=== PATIENT | male | born 1950 | race Caucasian/White ===

== ENCOUNTER 2024-09-07 19:15 | Inpatient (IN) | payer OTHER ==
[~2024-09-07] VITALS: Ht 175.3 cm; Wt 105.0 kg
--- NOTE | 2024-09-07 19:39 | ED.PDOC ---
Garry. trauma (HPI) HPI Comments 78 year old male brought in by EMS presents to the ED with a chief complaint of head injury s/p fall onset today. Per EMS, patient fell, hit back of head on metal cart and currently has abrasion on back of head, placed on a c-collar. Patient states he was walking, lost his balance, fell and landed on his back. Patient is currently experiencing slight headache, unknown when his last tetanus vaccine was. EKG performed by EMS was concerning for STEMI. Pt denies CP, sob, n/v, dizziness, weakness. 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 PMHx HTN, HLD, heart murmur, depression. Denies neck/back pain, other injury, focal weakness or vision change s. No other symptoms or modifying factors present at this time. Chief Complaint: Fall Injury Time Seen by MD: 19:18 Allergies: Coded Allergies: Sulfamethoxazole w/Trimethoprim (Verified Allergy, Unknown, 09/07/24) Information Source: Patient, Emergency Med Personnel Mode of Arrival: EMS Severity: Moderate Timing: Hours Duration: Since onset Prehospital treatment: 12 Lead EKG, C-Collar, Oxygen Location: Head Location of laceration: Head Mechanism: Fall Associated signs and symtoms: Headache Past Medical History PAST MEDICAL HISTORY: Depression, High Lipids, HTN Past Medical History (Other): heart murmur Family History Family History: Unknown Social History Smoker: Non-Smoker Alcohol: Denies ETOH Use Drugs: Denies Drug Use Lives In: Home Constitutional: denies: chills, diaphoresis, fatigue, fever, malaise, sweats, weakness, others EENTM: denies: blurred vision, double vision, ear bleeding, ear discharge, ear drainage, ear pain, ear ringing, eye pain, eye redness, hearing loss, mouth pain, mouth swelling, nasal discharge, nose bleeding, nose congestion, nose pain, photophobia, tearing, throat pain, throat swelling, voice changes, others Respiratory: denies: cough, hemoptysis, orthopnea, SOB at rest, shortness of breath, SOB with excertion, stridor, wheezing, others Cardiovascular: denies: chest pain, dizzy spells, diaphoresis, Dyspnea on exertion, edema, irregular heart beat, left arm pain, lightheadedness, palpitations, PND, syncope, others Gastrointestinal: denies: abdomen distended, abdominal pain, blood streaked bowels, constipated, diarrhea, dysphagia, difficulty swallowing, hematemesis, melena, nausea, poor appetite, poor fluid intake, rectal bleeding, rectal pain, vomiting, others Genitourinary: denies: burning, dysuria, flank pain, frequency, hematuria, incontinence, penile discharge, penile sore, pain, testicle pain, testicle swelling, urgency, others Neurological: reports: headache; denies: dizziness, fainting, left sided numbness, left sided weakness, numbness, paresthesia, pre-existing deficit, right sided numbness, right sided weakness, seizure, speech problems, tingling, tremors, weakness, others Musculoskeletal: denies: back pain, gout, joint pain, joint swelling, muscle pain, muscle stiffness, neck pain, others Integumetry: reports: laceration (head ); denies: bruises, change in color, change in hair/nails, dryness, lesions, lumps, rash, wounds, others Allergic/Immunocompromised: denies: Difficulty Healing, Frequent Infections, Hives, Itching, others Hematologic/Lymphatic: denies: anemia, blood clots, easy bleeding, easy bruising, swollen glands, others Endocrine: denies: excessive hunger, excessive sweating, excessive thirst, excessive urination, flushing, intolerance to cold, intolerance to heat, unexplained weight gain, unexplained weight loss, others Psychiatric: denies: anxiety, bipolar disorder, depression, hopeless, panic disorder, schizophrenia, sleepless, suicidal, others All Other Systems: Reviewed and Negative Physical Exam General Appearance: No Apparent Distress HEENT: Other (Pupils and face symmetric. Occipital abrasion/soft tissue tenderness and swelling) Neck: Full Range of Motion, Normal Inspection, Supple, Other (Upper cervical paraspinal soft tissue tenderness) Respiratory: Lungs Clear, No Accessory Muscle Use, No Respiratory Distress, Normal Breath Sounds Cardiovascular: No Edema, No JVD, Regular Rate/Rhythm Breast Exam: Deferred Gastrointestinal: Non Tender, Soft Genitalia: Deferred Pelvic: Deferred Rectal: Deferred Extremities: Normal inspection, Normal range of motion, Non-tender, No pedal edema Neurologic: Alert (Oriented x4), Normal Affect, Normal Mood, Other (Moves all extremities. No gross focal deficit.) Cerebellar Function: NOT DONE Reflexes: NOT DONE Skin: Dry, Normal Color, Warm, Other (Occipital scalp abrasion/soft tissue swelling/tenderness) Lymphatic: NOT DONE Was a procedure done? Was a procedure done?: No EKG EKG #1: Comments Sinus tach, rate 102, normal intervals, left axis deviation, ST elevation in inferior leads consistent with acute AR other nonspecific T changes EKG #2: Comments Sinus tach, rate 100, normal intervals, normal axis, inferior Q-wave, nonspecific T change. Significantly changed from previous EKG, currently not showing inferior ST elevation. Differential Diagnosis Multiple Trauma: Closed Head Injury, Cardiac Injury, Cerebral Contusion, Spine Injury, Contusion, Hematoma Neck Injury: Cervical Muscle Spasm, Cervical Sprain, Cervical Strain, Cervical Fracture X-Ray, Labs, Meds, VS Vital Signs Date Time Temp Pulse Resp B/P (MAP) Pulse Ox O2 Delivery O2 Flow Rate FiO2 09/07/24 22:00 99.2 99 19 134/66 (88) 97 99.2 09/07/24 20:00 91 21 121/70 (87) 95 09/07/24 19:48 99.4 100 14 144/72 (96) 95 99.4 09/07/24 19:45 Room Air* 0 21 09/07/24 19:34 100 09/07/24 19:16 99.1 110 16 153/89 (110) 98 Lab Test 09/07/24 22:55 09/07/24 21:19 09/07/24 21:11 09/07/24 20:03 Range/Units Troponin I High Sensitivity 2105 *H 975 *H 518 *H </=54 ng/L Urine Color Light-yellow Yellow Urine Clarity Clear Clear Urine pH 5.0 5.0-9.0 Urine Specific [place] 1.021 1.001-1.035 Urine Protein Trace H Negative Urine Ketones Negative Negative Urine Blood Trace H Negative /uL Urine Nitrite Negative Negative Urine Bilirubin Negative Negative Urine Urobilinogen Normal Negative mg/dL Urine Leukocyte Esterase 3+ Negative /uL Urine RBC 1 0 - 3 /hpf Urine Microscopic WBC 34 H 0-3 /HPF Urine Squamous Epithelial Cells Few <5 /hpf Urine Bacteria None seen None Seen /hpf Urine Hyaline Casts Few 0 - 2 /lpf Urine Mucus Few None Seen Urine Glucose Normal Normal mg/dL White Blood Count 10.2 4.4-10.8 10^3/uL Red Blood Count 4.56 4.5-5.90 10^6/uL Hemoglobin 16.2 13.5-17.5 g/dL Hematocrit 47.6 41.0-53.0 % Mean Corpuscular Volume 104.3 H 80.0-100.0 fL Mean Corpuscular Hemoglobin 35.6 H 28.0-32.0 pg Mean Corpuscular Hemoglobin Concent 34.2 32.0-36.0 g/dL Red Cell Distribution Width 12.7 11.8-14.3 % Platelet Count 197 140-450 10^3/uL Mean Platelet Volume 7.8 6.9-10.8 fL Neutrophils (%) (Auto) 88.1 H 37.0-80.0 % Lymphocytes (%) (Auto) 4.9 L 10.0-50.0 % Monocytes (%) (Auto) 5.8 0.0-12.0 % Eosinophils (%) (Auto) 0.9 0.0-7.0 % Basophils (%) (Auto) 0.3 0.0-2.0 % Neutrophils # (Auto) 8.9 H 1.6-8.6 10 ^3/uL Lymphocytes # (Auto) 0.5 0.4-5.4 10 ^3/uL Monocytes # (Auto) 0.6 0-1.3 10 ^3/uL Eosinophils # (Auto) 0.1 0-0.8 10 ^3/uL Basophils # (Auto) 0 0-0.2 10 ^3/uL Nucleated Red Blood Cells 0.0 % Sodium Level 140 136-145 mmol/L Potassium Level 4.3 3.5-5.1 mmol/L Chloride Level 107 98-107 mmol/L Carbon Dioxide Level 27 20-31 mmol/L Anion Gap 6 5-15 Blood Urea Nitrogen 23 9-23 mg/dL Creatinine 1.05 0.700-1.30 mg/dL Glomerular Filtration Rate Calc 72 >90 mL/min BUN/Creatinine Ratio 21.9 H 10.0-20.0 Serum Glucose 79 74-106 mg/dL Calcium Level 9.8 8.7-10.4 mg/dL B-Type Natriuretic Peptide 34.66 0-100 pg/mL Current Medications Medications (Trade) Dose Ordered Sig/Jomar Route Start Time Stop Time Status Last Admin Diphtheria/ Tetanus/Acell Pertussis (Boostrix T-Dap) 0.5 ml ONCE ONCE IM 09/07/24 19:45 09/07/24 19:46 DC 09/07/24 20:10 Acetaminophen/ Hydrocodone Bitart ([place] 5/325MG Tab) 1 tab ONCE ONCE PO 09/07/24 19:45 09/07/24 19:46 DC 09/07/24 21:40 Aspirin 325 mg ONCE ONCE PO 09/07/24 21:30 09/07/24 21:31 DC 09/07/24 21:39 ORDERING PHYSICIAN: SHERLYN PANCHAL MD PROCEDURE(s): CS2 - CERVICAL WITHOUT CONTRAST REASON: trauma ORDER NUMBER(s): [id number], ACCESSION NUMBER(s): [id number] EXAM: CT CERVICAL WITHOUT CONTRAST HISTORY: trauma COMPARISON: None CTDIvol [CTDIvol] mGy, DLP [DLP] mGy*cm. TECHNIQUE: Multiple axial CT images of the spine were obtained using bone algorithm. Axial and coronal reformatting was done. Bone and soft tissue wind ows were reviewed. FINDINGS: Straightening of the normal cervical lordosis. No listhesis. No evidence of cervical spine fracture or dislocation. Visualized paraspinal soft tissues are grossly unremarkable. Multilevel cervical spondylosis with at most mild spinal canal narrowing. IMPRESSION: No evidence of cervical spine fracture or dislocation. ATED BY: SANTY MARIN MD DICTATED DATE/TIME: 09/07/242103 SIGNED BY: SANTY MARIN MD SIGNED DATE/TIME: 09/07/242103 CC: ORDERING PHYSICIAN: SHERLYN PANCHAL MD PROCEDURE(s): CXRP - CHEST PORTABLE REASON: abn ekg ORDER NUMBER(s): [id number], ACCESSION NUMBER(s): [id number] CHEST RADIOGRAPH Indication: abn ekg Technique: Single frontal view of the chest was obtained COMPARISON: None FINDINGS: Lines and Tubes: None Lungs: Clear Pleura: No effusion. No pneumothorax. Cardiomediastinal contours: Within normal limits Bones: Unremarkable IMPRESSION: No acute disease. ATED BY: SANTY MARIN MD DICTATED DATE/TIME: 09/07/242105 SIGNED BY: SANTY MARIN MD SIGNED DATE/TIME: 09/07/242105 CC: ORDERING PHYSICIAN: SHERLYN PANCHAL MD PROCEDURE(s): HWOCT - HEAD WITHOUT CONTRAST REASON: trauma ORDER NUMBER(s): [id number], ACCESSION NUMBER(s): [id number] CT HEAD WITHOUT CONTRAST INDICATION: trauma COMPARISON: None TECHNIQUE: CT of the head without intravenous contrast. RADIATION DOSE: CTDIvol: mGy, DLP: mGy*cm FINDINGS: There is no evidence of intracranial hemorrhage, large infarct, extra-axial collection, mass effect, midline shift, herniation or hydrocephalus. The ventricles, sulci and cisterns are normal. Mild chronic white matter microvascular ischemic changes. Visualized paranasal sinuses and mastoid air cells are clear. Soft tissues and osseous structures are unremarkable. IMPRESSION: No acute intracranial abnormality identified. Mild chronic microvascular ischemic changes. ATED BY: SANTY MARIN MD DICTATED DATE/TIME: 09/07/242100 SIGNED BY: SANTY MARIN MD SIGNED DATE/TIME: 09/07/242100 CC: ORDERING PHYSICIAN: SHERLYN PANCHAL MD PROCEDURE(s): ABPL - CT AB PEL WO CON-NO ORAL OR IV REASON: FALL // BLOOD IN URINE ORDER NUMBER(s): [id number], ACCESSION NUMBER(s): [id number] Exam: CT CT AB PEL WO CON-NO ORAL OR IV History: FALL // BLOOD IN URINE Comparison Study: None available at time of dictation. TECHNIQUE: Multidetector CT of the abdomen was performed from lung bases to pubic symphysis. Imaging was performed without IV contrast. Axial, coronal and sagittal multiplanar reformats were obtained from the axial data set by the technologist. Radiation Dose Information: CT Dose: CTDI volume is 17.45 mGy. Dose-length product is 2573.08 mGy*cm FINDINGS: Evaluation of solid organs is limited due to lack of intravenous contrast use. Findings: Lung Bases: No acute or significant lung base finding. Normal heart size. No pleural or pericardial effusion. Liver: Hepatic steatosis Gallbladder and Biliary Tree: Unremarkable Spleen: Unremarkable Pancreas: The pancreas is grossly normal in appearance. Adrenal Glands: Unremarkable Kidneys: No nephrolithiasis or hydronephrosis. Prostate measures 4.2 x 3.9 cm. Bladder: Grossly unremarkable for degree of distention. Bowel: The stomach is grossly normal in appearance. Small bowel and colon are normal in caliber and distribution. The appendix is not visualized; however, no secondary findings of acute appendicitis identified. Ascites: Absent Lymphadenopathy: No mesenteric, retroperitoneal or periportal lymphadenopathy. Abdominal Wall and Mesentery: 4-5 cm fat filled right inguinal hernia. Vasculature: The visualized abdominal aorta is normal in size and caliber. Evaluation of abdominal and pelvic vessels is limited due to lack of intravenous contrast. Pelvic Organs: Unremarkable Musculoskeletal: No aggressive focal bony lesions, acute fractures or dislocation. Soft tissues: Unremarkable IMPRESSION: 1. Hepatic steatosis. 2. No nephrolithiasis or hydronephrosis. 3. Prostate measures 4.2 by 3.9 cm HS:Y Radiation optimization: All CT scans at this facility use at least one of these dose optimization techniques: automated exposure control mA and/or kV adjustment per patient size (includes targeted exams where dose is matched to clinical indication) or iterative reconstruction. ATED BY: DONALD RUTLEDGE Jr., DO DICTATED DATE/TIME: 09/07/242118 SIGNED BY: DONALD RUTLEDGE Jr., SIGNED DATE/TIME: 09/07/242118 CC: X-Ray, Labs, Meds, VS Comment 74-year-old male with a history of hypertension, dyslipidemia and heart murmur brought in by EMS after a mechanical fall with head injury. ST elevation in inferior leads was noted on EKG performed by EMS, so the patient was evaluated by Dr. Rivera in the ED. Patient denied chest pain, shortness breath or weakness. Vitals remarkable for heart rate 110, BP 153/89 Exam remarkable for occipital scalp abrasion/soft tissue swelling/tenderness and upper cervical paraspinal soft tissue tenderness Rhythm strip independently interpreted by me: Sinus tach, rate 102, no ectopy. Head CT and CT C-spine unremarkable for any acute injury Chest x-ray unremarkable CT abdomen and pelvis was performed because patient later complained of hematuria. CT abdomen and pelvis: IMPRESSION: 1. Hepatic steatosis. 2. No nephrolithiasis or hydronephrosis. 3. Prostate measures 4.2 by 3.9 cm CBC and basic metabolic panel unremarkable. Serial troponins 518, 975, 2105 BNP normal UA abnormal consistent with UTI Patient treated with the following in the ED: Seen and evaluated by Dr. Rivera on arrival. Dr. 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 [place] 5/325 mg p.o., aspirin 325 mg p.o., Rocephin 1 g IV, started on heparin per protocol. Time of 1ST Reevaluation: 19:48 Reevaluation 1ST: Unchanged Patient Education/Counseling: Diagnosis, Treatment, Prognosis Family Education/Counseling: No Family Present Additional Information The following tests were ordered, and results were reviewed by me: TROP-x3, CBC, BNP, XY CHEST, UA, BMP, EKG, CT HEAD WO CONTRAST, CT CERVICAL WO CONTRAST I reviewed and agreed with the following test results read by other providers: CT HEAD WO CONTRAST, CT CERVICAL WO CONTRAST, XY CHEST Additional Information was gathered from interviewing the following independent historians: EMS I discussed treatment and results with medical personnel and: patient Departure 1 Departure Time of Disposition: 23:56 Impression: Primary Impression: Head injury Qualified Codes: S09.90XA - Unspecified injury of head, initial encounter Additional Impressions: Acute AR Qualified Codes: I21.9 - Acute myocardial infarction, unspecified UTI (urinary tract infection) Qualified Codes: N39.0 - Urinary tract infection, site not specified; R31.9 - Hematuria, unspecified Disposition: ADMITTED INPATIENT Admit to: Tele Condition: Guarded Critical Care Note Critical Care Time?: Yes (45 min-critical care time only) Critical care comment: Critical care time including multiple bedside re-evaluations, review of lab and imaging studies, and discussion of the case with the admitting and consulting providers. Patient is high risk for hemodynamic decompensation. Stability Stability form required: No Heart Score Heart Score: Heart Score Response (Comments) Value History Slightly Suspicious [address]-Deviation 2 Age >65 2 Risk Factors 1 or 2 risk factors 1 Troponin >3 x's Normal limit 2 Total 7 I personally scribed for SHERLYN PANCHAL MD ([email or web address]) on 09/07/24 at 19:39. Electronically submitted by Zaina Fagan ([email or web address]). I personally scribed for SHERLYN PANCHAL MD (ENRIQUE) on 09/07/24 at 20:20. Electronically submitted by Zaina Fagan ([email or web address]). I personally scribed for SHERLYN PANCHAL MD (ENRIQUE) on 09/07/24 at 20:24. Electronically submitted by Zaina Fagan ([email or web address]). I personally scribed for SHERLYN PANCHAL MD (ENRIQUE) on 09/07/24 at 20:28. Electronically submitted by Zaina Fagan ([email or web address]). I personally scribed for SHERLYN PANCHAL MD (ENRIQUE) on 09/07/24 at 21:48. Electronically submitted by Zaina Fagan ([email or web address]). SHERLYN PANCHAL MD Sep 07, 2024 19:39
[2024-09-07] MEDS: TETANUS-DIPTH-ACEL PERTUSSIS 0.5ML SYR Tdap IM ONE (20:10)
[2024-09-07 20:18] LABS: Basophils # (auto) 0 10 ^3/uL (0-0.2); Basophils % (auto) 0.3 % (0.0-2.0); Eosinophils # (auto) 0.1 10 ^3/uL (0-0.8); Lymphocytes # (auto) 0.5 10 ^3/uL (0.4-5.4); Monocytes # (auto) 0.6 10 ^3/uL (0-1.3); Neutrophils # (auto) 8.9 10 ^3/uL (1.6-8.6)
[2024-09-07 20:19] LABS: Eosinophils % (auto) 0.9 % (0.0-7.0); Hematocrit 47.6 % (41.0-53.0); Hemoglobin 16.2 g/dL (13.5-17.5); Lymphocytes % (auto) 4.9 % (10.0-50.0); Mean Corpuscular Hemoglobin 35.6 pg (28.0-32.0); Mean Corpuscular Hgb Conc. 34.2 g/dL (32.0-36.0); Mean Corpuscular Volume 104.3 fL (80.0-100.0); Monocytes % (auto) 5.8 % (0.0-12.0); Neutrophils % (auto) 88.1 % (37.0-80.0); Platelet Count (auto) 197 10^3/uL (140-450); Red Blood Cells 4.56 10^6/uL (4.5-5.90); Red Cell Distribution Width 12.7 % (11.8-14.3); White Blood Cell 10.2 10^3/uL (4.4-10.8)
[2024-09-07 20:32] LABS: Chloride 107 mmol/L (98-107); Potassium 4.3 mmol/L (3.5-5.1); Sodium 140 mmol/L (136-145)
[2024-09-07 20:33] LABS: Anion Gap 6 (5-15); Calcium 9.8 mg/dL (8.7-10.4); Carbon Dioxide 27 mmol/L (20-31)
[2024-09-07 20:38] LABS: BUN/Creatinine Ratio 21.9 (10.0-20.0); Blood Urea Nitrogen 23 mg/dL (9-23); Glucose 79 mg/dL (74-106)
--- NOTE | 2024-09-07 21:03 | DVH ---
CT HEAD WITHOUT CONTRAST INDICATION: trauma COMPARISON: None TECHNIQUE: CT of the head without intravenous contrast. RADIATION DOSE: CTDIvol: mGy, DLP: mGy*cm FINDINGS: There is no evidence of intracranial hemorrhage, large infarct, extra-axial collection, mass effect, midline shift, herniation or hydrocephalus. The ventricles, sulci and cisterns are normal. Mild ch ronic white matter microvascular ischemic changes. Visualized paranasal sinuses and mastoid air cell s are clear. Soft tissues and osseous structures are unremarkable. IMPRESSION: No acute intracranial abnormality identified. Mild chronic microvascular ischemic changes.
--- NOTE | 2024-09-07 21:06 | DVH ---
EXAM: CT CERVICAL WITHOUT CONTRAST HISTORY: trauma COMPARISON: None CTDIvol [CTDIvol] mGy, DLP [DLP] mGy*cm. TECHNIQUE: Multiple axial CT images of the spine were obtained using bone algorithm. Axial and coron al reformatting was done. Bone and soft tissue windows were reviewed. FINDINGS: Straightening of the normal cervical lordosis. No listhesis. No evidence of cervical spine fracture o r dislocation. Visualized paraspinal soft tissues are grossly unremarkable. Multilevel cervical spondylosis with at most mild spinal canal narrowing. IMPRESSION: No evidence of cervical spine fracture or dislocation.
--- NOTE | 2024-09-07 21:09 | DVH ---
CHEST RADIOGRAPH Indication: abn ekg Technique: Single frontal view of the chest was obtained COMPARISON: None FINDINGS: Lines and Tubes: None Lungs: Clear Pleura: No effusion. No pneumothorax. Cardiomediastinal contours: Within normal limits Bones: Unremarkable IMPRESSION: No acute disease.
[2024-09-07 21:19] LABS: Urine Bacteria None Seen /hpf (None Seen)
--- NOTE | 2024-09-07 21:21 | DVH ---
Exam: CT CT AB PEL WO CON-NO ORAL OR IV History: FALL // BLOOD IN URINE Comparison Study: None available at time of dictation. TECHNIQUE: Multidetector CT of the abdomen was performed from lung bases to pubic symphysis. Imaging was performed without IV contrast. Axial, coronal and sagittal multiplanar reformats were obtained fr om the axial data set by the technologist. Radiation Dose Information: CT Dose: CTDI volume is 17.45 mGy. Dose-length product is 2573.08 mGy*cm FINDINGS: Evaluation of solid organs is limited due to lack of intravenous contrast use. Findings: Lung Bases: No acute or significant lung base finding. Normal heart size. No pleural or pericardial effusion. Liver: Hepatic steatosis Gallbladder and Biliary Tree: Unremarkable Spleen: Unremarkable Pancreas: The pancreas is grossly normal in appearance. Adrenal Glands: Unremarkable Kidneys: No nephrolithiasis or hydronephrosis. Prostate measures 4.2 x 3.9 cm. Bladder: Grossly unremarkable for degree of distention. Bowel: The stomach is grossly normal in appearance. Small bowel and colon are normal in caliber and d istribution. The appendix is not visualized; however, no secondary findings of acute appendicitis id entified. Ascites: Absent Lymphadenopathy: No mesenteric, retroperitoneal or periportal lymphadenopathy. Abdominal Wall and Mesentery: 4-5 cm fat filled right inguinal hernia. Vasculature: The visualized abdominal aorta is normal in size and caliber. Evaluation of abdominal a nd pelvic vessels is limited due to lack of intravenous contrast. Pelvic Organs: Unremarkable Musculoskeletal: No aggressive focal bony lesions, acute fractures or dislocation. Soft tissues: Unremarkable IMPRESSION: 1. Hepatic steatosis. 2. No nephrolithiasis or hydronephrosis. 3. Prostate measures 4.2 by 3.9 cm HS:Y Radiation optimization: All CT scans at this facility use at least one of these dose optimization samantha hniques: automated exposure control mA and/or kV adjustment per patient size (includes targeted exam s where dose is matched to clinical indication) or iterative reconstruction.
[2024-09-07] MEDS: ASPirin 325 MG TAB PO ONE (21:39)
[2024-09-07] MEDS: HYDROcodone-ACET 5/325MG TAB PO ONE (21:40)
[2024-09-07 22:05] LABS: Urine Blood TRACE /uL (Negative); Urine Clarity Clear (Clear); Urine Color Light-Yellow (Yellow); Urine Hyaline Cast FEW /lpf (0 - 2); Urine Mucus FEW (None Seen); Urine Protein, UAD TRACE (Negative); Urine Specific Gravity 1.021 (1.001-1.035); Urine Squamous Epithelial Cell FEW /hpf (<5); Urine Urobilinogen Normal (Negative); Urine WBC 34 /HPF (0-3)
[2024-09-07] MEDS ORDERED: HEPARIN DRIP/D5W 100UNITS/ML 250 ML IV SCH (23:45)
[2024-09-08] VITALS (11 sets, daily range): BP systolic 111–157; BP diastolic 67–92; PULSE 72–94; RESP 13–21; TEMP 97.6–99.3; O2SAT 96–100
[2024-09-08] MEDS: cefTRIAXone 1GM/50ML D5W 50 ML IV ONE (00:11)
[2024-09-08 00:17] LABS: INR 1.04 (0.9-1.15); Partial Thromboplastin Time 25.9 SEC (24.5-34.5)
[2024-09-08] MEDS ORDERED: ACETAMINOPHEN 325 MG TAB PO PRN (00:45)
[2024-09-08] MEDS: HEPARIN SODIUM (PORCINE) 5000 UNITS/ML 1ML VIAL IV ONE ×3 (00:57→10:13)
[2024-09-08] MEDS: HEPARIN DRIP/D5W 100UNITS/ML 250 ML IV SCH ×2 (00:59→10:13)
[2024-09-08] MEDS: SODIUM CHLORIDE 0.9% 1,000 ML IV ONE (01:24)
[2024-09-08] MEDS: SODIUM CHLORIDE 0.9% 500 ML IV ONE (01:24)
--- NOTE | 2024-09-08 01:27 | DVHHPRES ---
History of Present Illness Resident Creating Document: HUEY DELUCA RESIDENT History of Present Illness 74-year-old male with past medical history of hypertension, dyslipidemia, depression, holosystolic heart murmur, depression who presented to the ED with chief complaint of head injury after mechanical fall. Patient reported that he was working on his yard for a long time collecting leaves, the patient states that after some time he started feeling minimally dizzy, fatigued and with low energy. Patient stated that he try to hold on the fence for a while, afterwards he started walking and he felt his knees and lower extremities did not respond and fall backwards hitting his head at the occipital region. The patient states that he never lost consciousness and that he tried to stand up and fall down once again hitting again his head during his fall. The patient states he never felt that he was loosing consciousness and denies blurry vision, hot sensation or any other symptoms. On admission initial labs showed a WBC of 10.2, hemoglobin of 16.2 troponins were significantly elevated at 975 and peaked at 2105. EKG was reviewed which showed sinus tachycardia with nonspecific T-wave inversion in leads III, AVF and V6. Initial head CT without contrast showed no evidence of intracranial bleeding or acute stroke. Chest x-ray was grossly unremarkable and cervical spine CT showed no fractures or dislocations. A CT scan of the abdomen and pelvis with hepatic steatosis and enlarged prostate. The patient denies chest pain, shortness of breath, fever/chills or any other symptoms at this time. Patient will be admitted to telemetry for further assessment and management. Home Medications: Metoprolol succinate, lisinopril, atorvastatin Cardiovascular: HTN, hyperipidemia Psych: Depression Past Surgical History: None Family History: None Smoke: No ALCOHOL: none Drugs: None Lives: with Family Domestic Violence: Neg Review of Systems Constitutional: No: Fever, Chills, Sweats, Weakness, Malaise, Other Eyes: No: Pain, Vision change, Conjunctivae inflammation, Eyelid inflammation, Other, Redness ENT: No: Ear pain, Ear discharge, Nose pain, Nose discharge, Nose congestion, Mouth pain, Mouth swelling, Throat pain, Throat swelling, Other Respiratory: No: Cough, Dry, Shortness of breath, SOB with excertion, Wheezing, Hemoptysis, Pleuritic Pain, Sputum, Wheezing, Other Cardiovascular: No: Chest Pain, Palpitations, Orthopnea, Paroxysmal Noc. Dyspnea, Edema, Lt Headedness, Other Gastrointestinal: No: Nausea, Vomiting, Abdominal Pain, Diarrhea, Constipation, Melena, Hematochezia, Other Genitourinary: No Dysuria, No Frequency, No Incontinence, No Hematuria, No Retention, No Other Musculoskeletal: No: other, neck pain, shoulder pain, arm pain, back pain, hand pain, leg pain, foot pain Skin: No: Rash, Lesions, Jaundice, Bruising, Other Neurological: Other (headache); No: Weakness, Numbness, Incoordination, Change in speech, Confusion, Seizures Allergies: Coded Allergies: Sulfamethoxazole w/Trimethoprim (Verified Allergy, Unknown, 09/07/24) Medications Current Medications Medications Dose Ordered Sig/Jomar Route Start Time Stop Time Status Last Admin Dose Admin Heparin Sodium/ Dextrose 250 ml @ 10 mls/hr Q24H IV 09/08/24 01:00 Acetaminophen 650 mg Q6HP PRN PO 09/08/24 00:45 UNV Enoxaparin Sodium 40 mg DAILY SC 09/08/24 10:00 UNV Exam Vital Signs Vital Signs Date Time Temp Pulse Resp B/P (MAP) Pulse Ox O2 Delivery O2 Flow Rate FiO2 09/08/24 00:00 92 09/07/24 22:00 99.2 19 134/66 (88) 97 99.2 09/07/24 19:45 Room Air* 0 21 General Appearance: Alert, Oriented X3, Cooperative, No acute distress HEENT: Atraumatic, PERRLA, EOMI, Mucous membr. moist/pink Respiratory: Clear to auscultation, Normal air movement Cardiovascular: Regular rate, Normal S1, Normal S2, Other (HOLOSYSTOLIC MURMUR) Abdominal: Normal bowel sounds, Soft, No tenderness, No hepatospenomegaly Extremities: No clubbing, No cyanosis, No edema, Normal pulses, No tenderness/swelling Skin: No rashes, No breakdown, No significant lesion Neuro: Normal gait, Normal speech, Strength at 5/5 X4 ext, Normal tone, Sensation intact, Cranial nerves 3-12 NL, Reflexes 2+ Psych/Mental Status: Mental status NL, Mood NL Labs/Xrays Labs Test 09/07/24 22:55 09/07/24 21:11 09/07/24 20:03 Range/Units Prothrombin Time 11.0 9.3-11.8 sec Prothrombin Time INR 1.04 0.9-1.15 Activated Partial Thromboplast Time 25.9 24.5-34.5 SEC Troponin I High Sensitivity 2105 *H </=54 ng/L Urine Color Light-yellow Yellow Urine Clarity Clear Clear Urine pH 5.0 5.0-9.0 Urine Specific [place] 1.021 1.001-1.035 Urine Protein Trace H Negative Urine Ketones Negative Negative Urine Blood Trace H Negative /uL Urine Nitrite Negative Negative Urine Bilirubin Negative Negative Urine Urobilinogen Normal Negative mg/dL Urine Leukocyte Esterase 3+ Negative /uL Urine RBC 1 0 - 3 /hpf Urine Microscopic WBC 34 H 0-3 /HPF Urine Squamous Epithelial Cells Few <5 /hpf Urine Bacteria None seen None Seen /hpf Urine Hyaline Casts Few 0 - 2 /lpf Urine Mucus Few None Seen Urine Glucose Normal Normal mg/dL White Blood Count 10.2 4.4-10.8 10^3/uL Red Blood Count 4.56 4.5-5.90 10^6/uL Hemoglobin 16.2 13.5-17.5 g/dL Hematocrit 47.6 41.0-53.0 % Mean Corpuscular Volume 104.3 H 80.0-100.0 fL Mean Corpuscular Hemoglobin 35.6 H 28.0-32.0 pg Mean Corpuscular Hemoglobin Concent 34.2 32.0-36.0 g/dL Red Cell Distribution Width 12.7 11.8-14.3 % Platelet Count 197 140-450 10^3/uL Mean Platelet Volume 7.8 6.9-10.8 fL Neutrophils (%) (Auto) 88.1 H 37.0-80.0 % Lymphocytes (%) (Auto) 4.9 L 10.0-50.0 % Monocytes (%) (Auto) 5.8 0.0-12.0 % Eosinophils (%) (Auto) 0.9 0.0-7.0 % Basophils (%) (Auto) 0.3 0.0-2.0 % Neutrophils # (Auto) 8.9 H 1.6-8.6 10 ^3/uL Lymphocytes # (Auto) 0.5 0.4-5.4 10 ^3/uL Monocytes # (Auto) 0.6 0-1.3 10 ^3/uL Eosinophils # (Auto) 0.1 0-0.8 10 ^3/uL Basophils # (Auto) 0 0-0.2 10 ^3/uL Nucleated Red Blood Cells 0.0 % Sodium Level 140 136-145 mmol/L Potassium Level 4.3 3.5-5.1 mmol/L Chloride Level 107 98-107 mmol/L Carbon Dioxide Level 27 20-31 mmol/L Anion Gap 6 5-15 Blood Urea Nitrogen 23 9-23 mg/dL Creatinine 1.05 0.700-1.30 mg/dL Glomerular Filtration Rate Calc 72 >90 mL/min BUN/Creatinine Ratio 21.9 H 10.0-20.0 Serum Glucose 79 74-106 mg/dL Calcium Level 9.8 8.7-10.4 mg/dL B-Type Natriuretic Peptide 34.66 0-100 pg/mL Assessment/Plan Assessment/Plan Assessment/Plan Traumatic head injury, S/P mechanical fall -There is a 2x2cm laceration in the superior occipital region with no active bleeding at this time -Full neurologic exam was unremarkable -CT scan of the head came back showing no evidence of intracranial bleeding or acute stroke at this time -cervical spine CT showed no fractures or dislocation at this time. -Pain medication -Monitor neurologic status -IV fluids 500cc bolus and maintenance at 100cc/hr NSTEMI likely type 2 -Patient completely asymptomatic denied chest pain/discomfort or SOB -Trops significantly elevated 975-2105 -trend trops -EKG showed sinus tachycardia with non specific t wave inversion in III, AVF and V6. No ST segment depression or elevation -BNP was 34 -Patient was loaded in aspirin -Hold hep drip at this time due to concern of bleeding in the setting of TBI x2 -Ordered echo -Consult cardiology UTI -U/A suggesting UTI -Start IV ceftriaxone Primary hypertension -Currently on the lower side, hold BP meds -IV fluids -Monitor closely Dyslipidemia -Order lipid panel -Start atorvastatin 40mg daily BPH -Enlarged prostate on CT, patient did not reported any symptoms at this time Goals of care discussed with the patient at bedside for >30min, FULL CODE Plan discussed with Dr. Redman Plan discussed with: Patient My Orders Orders - HUEY DELUCA RESIDENT Procedure Category Date Status Time Admit ADMIT 09/08/24 Transmitted 00:35 Code Status CODE 09/08/24 Transmitted 00:35 Vital Signs CONNIE 2/12/25 In Process 00:35 Review Orders With [facility] 09/08/24 In Process Adm. 00:35 Encourage Activity As CONNIE 09/08/24 In Process Tolerate 00:35 Acetaminophen Tablet PHA 09/08/24 Logged (Tylenol Tablet) 00:45 Notify Md Of Changes CONNIE 09/08/24 In Process From Base 00:35 Advance Directive CONNIE 09/08/24 In Process 00:35 Urinalysis LAB 09/08/24 Logged 00:35 Lipid Panel LAB 09/08/24 Logged 00:35 Urine Bacterial CHRISTELLE 09/08/24 Logged Culture 00:35 Patient Condition ORDERS 09/08/24 Transmitted 00:35 Allergies CONNIE 09/08/24 In Process 00:35 Drug Screen LAB 09/08/24 Logged 00:35 Hemoglobin A1c LAB 09/08/24 Logged 00:35 Enoxaparin Sodium PHA 09/08/24 Logged (Lovenox) 10:00 Sodium Chloride 0.9% PHA 09/08/24 Logged 00:45 Sodium Chloride 0.9% PHA 09/08/24 Logged 00:45 Ceftriaxone Ivpb PHA 09/08/24 Transmitted Rocephin 10:00 Date of Service: Sep 07, 2024 Billing Provider: TERESA REDMAN MD Common Visit Codes: [id number] INP/OBS CARE (HIGH) HUEY DELUCA RESIDENT Sep 08, 2024 01:27 TERESA REDMAN MD Sep 08, 2024 23:59
--- NOTE | 2024-09-08 06:13 | ECG ---
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
--- NOTE | 2024-09-08 06:14 | ECG ---
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
[2024-09-08 06:18] LABS: INR 1.04 (0.9-1.15); Partial Thromboplastin Time 27.3 SEC (24.5-34.5)
--- NOTE | 2024-09-08 09:21 | DVHINCON2 ---
FOZIA CARDENAS [facility] 09/08/24 0921: Date Seen: Sep 08, 2024 Referring Physician MD Fannie resident Reason for Consultation NSTEMI History of Present Illness This is a 74-year-old male patient who presents to emergency room with chief complaint of mechanical fall. The patient reports he was at home raking leaves when suddenly he began to feel extremely fatigued. He reports taking a break and leaning up against a fence when suddenly he felt as though his legs gave out from under him. He reports that this happened two times. He denies any loss of consciousness, but reports hitting his head. EMS was called and the patient was brought to the emergency room for further evaluation. Initial EKG done by [facility] [place] reveals normal sinus rhythm with ST segment elevation to inferior leads. When the patient arrived to the emergency room a repeat twelve lead electrocardiogram was done and revealed sinus tachycardia with nonspecific ST segment depression to inferolateral leads. Initial troponin level of 518ng/L with significant up trend and peak level now at 8039ng/L. Significant past medical history includes hypertension, dyslipidemia, restless legs syndrome, and obesity. He also reports an unspecified valvular disease in which he follows up with a radiology asst at [facility]. Past Medical History Past medical history reviewed. No other significant than mentioned above. Past Surgical History Denies Family History Family history reviewed. Social History Denies the use of tobacco, alcohol or illicit drugs. Allergies: Coded Allergies: Sulfamethoxazole w/Trimethoprim (Verified Allergy, Unknown, 09/07/24) Home Meds Home medications reviewed. Current Medications Current Medications Medications (Trade) Dose Ordered Sig/Jomar Route PRN Reason Start Time Stop Time Status Last Admin Heparin Sodium/ Dextrose 250 ml @ 11.448 mls/ hr [id number] IV 09/07/24 23:45 09/08/24 00:40 DC Heparin Sodium/ Dextrose 250 ml @ 10 mls/hr Q24H IV 09/08/24 01:00 09/08/24 01:08 DC 09/08/24 00:59 Acetaminophen (Tylenol Tablet) 650 mg Q6HP PRN PO PAIN SCALE 1-3 OR TEMP>100.4 09/08/24 00:45 Enoxaparin Sodium (Lovenox) 40 mg DAILY SC 09/08/24 10:00 09/08/24 00:50 DC Ceftriaxone Sodium 50 ml @ 100 mls/hr DAILY@0000 IV 09/09/24 00:00 Aspirin 81 mg DAILY PO 09/08/24 10:00 Atorvastatin Calcium (Lipitor) 40 mg DAILY PO 09/08/24 10:00 Review of Systems Constitutional: Fatigue Ears, Nose, & Throat: No symptom reported Eyes: No symptom reported Neurological: No symptoms reported Pulmonary/Respiratory: No symptoms reported Cardiovascular: No symptom reported Gastrointestinal: No symptom reported Genitourinary: No symptom reported Musculoskeletal: No symptom reported Skin: No symptom reported Psychiatric: No symptom reported Endocrine: No symptom reported Hematologic/Lymphatic: No symptom reported Vital Signs Vital Signs Date Time Temp Pulse Resp B/P (MAP) Pulse Ox O2 Delivery O2 Flow Rate FiO2 09/08/24 07:44 Room Air* 0 21 09/08/24 07:20 98.4 96 12 133/70 (91) 97 98.4 Physical Exam General Appearance: Cooperative. Well-developed. Well-nourished. No acute distress. Pulmonary/Respiratory: Clear, bilateral breaths sounds. Systolic murmur Cardiovascular/Chest: Regular rate and rhythm. Peripheral Pulses: 2+ Radial (R). 2+ Radial (L). 2+ Pedal (R). 2+ Pedal (L) Abdominal Exam: Normal bowel sounds. Ankle Exam: Negative ankle edema Lower extremities: Negative lower extremity edema Neuro/Mental Status: A/OX4, coherent. Thoughts/Psych: Normal thought pattern. Appropriate mood and affect. Good judgment and insight. Appearance: No acute distress. Skin Exam: Normal inspection. Normal color. Warm and dry. Labs/Diagnostic Data Labs Test 09/08/24 08:28 09/08/24 05:30 09/07/24 22:55 09/07/24 21:11 Range/Units Prothrombin Time 11.0 9.3-11.8 sec Prothrombin Time INR 1.04 0.9-1.15 Activated Partial Thromboplast Time 27.3 24.5-34.5 SEC Hemoglobin A1c 5.9 H <5.7 % A1C Creatine Kinase 367 H 46-171 U/L Urine Color Light-yellow Yellow Urine Clarity Clear Clear Urine pH 5.0 5.0-9.0 Urine Specific [place] 1.021 1.001-1.035 Urine Protein Trace H Negative Urine Ketones Negative Negative Urine Blood Trace H Negative /uL Urine Nitrite Negative Negative Urine Bilirubin Negative Negative Urine Urobilinogen Normal Negative mg/dL Urine Leukocyte Esterase 3+ Negative /uL Urine RBC 1 0 - 3 /hpf Urine Microscopic WBC 34 H 0-3 /HPF Urine Squamous Epithelial Cells Few <5 /hpf Urine Bacteria None seen None Seen /hpf Urine Hyaline Casts Few 0 - 2 /lpf Urine Mucus Few None Seen Urine Glucose Normal Normal mg/dL Test 09/07/24 20:03 Range/Units White Blood Count 10.2 4.4-10.8 10^3/uL Red Blood Count 4.56 4.5-5.90 10^6/uL Hemoglobin 16.2 13.5-17.5 g/dL Hematocrit 47.6 41.0-53.0 % Mean Corpuscular Volume 104.3 H 80.0-100.0 fL Mean Corpuscular Hemoglobin 35.6 H 28.0-32.0 pg Mean Corpuscular Hemoglobin Concent 34.2 32.0-36.0 g/dL Red Cell Distribution Width 12.7 11.8-14.3 % Platelet Count 197 140-450 10^3/uL Mean Platelet Volume 7.8 6.9-10.8 fL Neutrophils (%) (Auto) 88.1 H 37.0-80.0 % Lymphocytes (%) (Auto) 4.9 L 10.0-50.0 % Monocytes (%) (Auto) 5.8 0.0-12.0 % Eosinophils (%) (Auto) 0.9 0.0-7.0 % Basophils (%) (Auto) 0.3 0.0-2.0 % Neutrophils # (Auto) 8.9 H 1.6-8.6 10 ^3/uL Lymphocytes # (Auto) 0.5 0.4-5.4 10 ^3/uL Monocytes # (Auto) 0.6 0-1.3 10 ^3/uL Eosinophils # (Auto) 0.1 0-0.8 10 ^3/uL Basophils # (Auto) 0 0-0.2 10 ^3/uL Nucleated Red Blood Cells 0.0 % Sodium Level 140 136-145 mmol/L Potassium Level 4.3 3.5-5.1 mmol/L Chloride Level 107 98-107 mmol/L Carbon Dioxide Level 27 20-31 mmol/L Anion Gap 6 5-15 Blood Urea Nitrogen 23 9-23 mg/dL Creatinine 1.05 0.700-1.30 mg/dL Glomerular Filtration Rate Calc 72 >90 mL/min BUN/Creatinine Ratio 21.9 H 10.0-20.0 Serum Glucose 79 74-106 mg/dL Calcium Level 9.8 8.7-10.4 mg/dL B-Type Natriuretic Peptide 34.66 0-100 pg/mL Assessment NSTEMI, rule out coronary artery disease Rule out structural heart disease Hypertension Dyslipidemia Urinary tract infection Restless legs syndrome Obesity Plan/Recommendation We will continue with the following plan/recommendations (Dr. Alas): * Echocardiogram to evaluate cardiac function * Chest pain protocol * SOHAN score: 3 points * HEART score: 6 points * Heparin drip per pharmacy protocol * Lipid lowering agent * Cardiac surveillance Case discussed with . Given the patient's twelve lead electrocardio gram, significant up-trend and troponin level and comorbidities, we will recommend a coronary angiogram with left heart catheterization. The procedure was discussed with the patient in full detail including risks and benefits. Risks include but are not limited to bleeding, contrast-induced nephropathy, stroke, and even . The patient understands and is agreeable to undergo the procedure. We will schedule the patient at first availability. Thank you for allowing us to care for this patient. Please call with any questions or concerns. Critical care time spent: 44 minutes This medical document was created using an electronic medical record system with voice recognition software and computerized dictation system. Although this document has been carefully reviewed, there might still be some phonetic and typographical errors. Occasional wrong-word or ``sound-alike substitutions may have occurred due to the inherent limitations of voice recognition software. These areas are purely typographical due to imperfections of the software programs and do not reflect any compromise in the patient's medical care. Please read the chart carefully and recognize, using context, where these substitutions have occurred. Plan discussed with: Patient NYHA Physical activity limitations: NA Date of Service: Sep 08, 2024 Billing Provider: FOZIA CARDENAS Cardiology Common Codes: 89611-[id number] INP/OBS CARE (High) Cardiology Consultation Codes: [id number] CONSULT <45MIN ROSE MARIE ALAS MD 09/08/24 4788: Allergies: Coded Allergies: Sulfamethoxazole w/Trimethoprim (Verified Allergy, Unknown, 09/07/24) Plan/Recommendation stemi called off last night risign troponin mod to severe on echo ,may need tavr eval needs [facility] pt agrees after informed consent 40 mins critical care time spent Plan discussed with: Patient CARDENASFOZIA Sep 08, 2024 09:21 ROSE MARIE ALAS MD Sep 08, 2024 18:48
[2024-09-08 09:56] LABS: Basophils # (auto) 0 10 ^3/uL (0-0.2); Eosinophils # (auto) 0.1 10 ^3/uL (0-0.8); Eosinophils % (auto) 1.9 % (0.0-7.0); Hemoglobin 14.9 g/dL (13.5-17.5); Lymphocytes # (auto) 1.2 10 ^3/uL (0.4-5.4); Mean Corpuscular Hemoglobin 35.2 pg (28.0-32.0); Monocytes # (auto) 0.7 10 ^3/uL (0-1.3); Nucleated Red Blood Cells % 0.1 %; Red Blood Cells 4.23 10^6/uL (4.5-5.90)
[2024-09-08] MEDS: ATORVASTATIN 20 MG TAB PO SCH (09:56)
[2024-09-08] MEDS: ASPirin 81 mg TAB PO SCH (09:56)
[2024-09-08 09:57] LABS: Basophils % (auto) 0.5 % (0.0-2.0); Hematocrit 43.7 % (41.0-53.0); Lymphocytes % (auto) 21.2 % (10.0-50.0); Mean Corpuscular Volume 103.3 fL (80.0-100.0); Monocytes % (auto) 11.9 % (0.0-12.0); Neutrophils # (auto) 3.8 10 ^3/uL (1.6-8.6); Neutrophils % (auto) 64.5 % (37.0-80.0); Platelet Count (auto) 169 10^3/uL (140-450); Red Cell Distribution Width 12.9 % (11.8-14.3); White Blood Cell 5.9 10^3/uL (4.4-10.8)
[2024-09-08] MEDS ORDERED: ENOXAPARIN SOD 40 MG/0.4 ML SYRINGE SC SCH (10:00)
[2024-09-08 10:04] LABS: INR 1.06 (0.9-1.15); Partial Thromboplastin Time 25.1 SEC (24.5-34.5); Prothrombin Time 11.2 sec (9.3-11.8)
--- NOTE | 2024-09-08 10:07 | DVHPNRES ---
Progress Note Date Seen: Sep 08, 2024 Resident Creating Document: RUI TOBIAS RESIDENT Medical Necessity Reason Pt with a Central, PICC or Fol: No (RN) Subjective Review of Systems 74-year-old male with past medical history of hypertension, dyslipidemia, depression, holosystolic heart murmur, depression, multifocal motor neuropathy, on IVIG intravenous immunoglobulin every a 10 week, restless leg syndrome on Neupro who presented to the ED with chief complaint of head injury after mechanical fall. Patient reported that he was working on his yard for a long time collecting leaves, the patient states that after some time he started feeling minimally dizzy, unsteady, fatigued and with low energy. Patient stated that he try to hold on the fence for a while, afterwards he started walking and he felt his knees and lower extremities did not respond and fall backwards hitting his head at the occipital region. The patient states that he never lost consciousness and that he tried to stand up and fall down once again hitting again his head during his fall. The patient states he never felt that he was loosing consciousness and denies blurry vision, hot sensation or any other symptoms. Patient denied any chest pain, shortness of breath, palpitation, dysarthria, dysuria, acute joint pain or swelling. On admission initial labs showed a WBC of 10.2, hemoglobin of 16.2 troponins were significantly elevated at 975 and peaked at 2105. EKG was reviewed which showed sinus tachycardia with nonspecific T-wave inversion in leads III, AVF and V6. Patient's troponin I was trending 518> 975> 2105> 7987> 8039> 7968. UDS negative, triglyceride 202, TSH 1.51. Initial head CT without contrast showed no evidence of intracranial bleeding or acute stroke. Chest x-ray was grossly unremarkable and cervical spine CT showed no fractures or dislocations. A CT scan of the abdomen and pelvis with hepatic steatosis and enlarged prostate. The patient denies chest pain, shortness of breath, fever/chills or any other symptoms at this time. Patient will be admitted to telemetry for further assessment and management. PMH-hypertension, dyslipidemia, depression, holosystolic heart murmur, depression, multifocal motor neuropathy for revealed he gets IVIG intravenous immunoglobulin every a 10 week, restless leg syndrome on Neupro PSH- R right arm surgery Allergy- sulfamethoxazole, trimethoprim Personal History/ Social History- Patient was seen today at the bedside. Patient Cardiovascular- deny acute chest pain or shortness of breath or cough or palpitation Respiratory denies cough or short of breath or wheezing Gastrointestinal- denies any rectal bleeding, nausea or vomiting Musculoskeletal-denies acute joint swelling or tenderness or redness Neurological- denies acute dysarthria, dysphagia, change in vision Psychiatry- denies depression or SI or HI Skin- denies acute rash or purpura Patient was seen today for clinical evaluation. Labs and chart reviewed. Patient reports doing okay. No acute change in mental status or no acute neurological deficit. Denied any chest pain or shortness of breath. Patient's troponin I was trending 518> 975> 2105> 7987> 8039> 7968. Patient was seen by commercial shrimping captain. Cardiology recommended for left heart catheterization today. Pending echo 2D report. New prolonged fold as per Cardiology recommendation. Objective vital signs Vital Sign Date Time Temp Pulse Resp B/P (MAP) Pulse Ox O2 Delivery O2 Flow Rate FiO2 09/08/24 08:00 82 09/08/24 07:44 Room Air* 0 21 09/08/24 07:20 98.4 12 133/70 (91) 97 98.4 Total Intake and Output 09/07/24 09/07/24 09/08/24 15:00 23:00 07:00 Intake Total 500 ml Balance 500 ml medications Current Medications Medications Dose Ordered Sig/Jomar Route Start Time Stop Time Status Last Admin Dose Admin Acetaminophen 650 mg Q6HP PRN PO 09/08/24 00:45 Ceftriaxone Sodium 50 ml @ 100 mls/hr DAILY@0000 IV 09/09/24 00:00 Aspirin 81 mg DAILY PO 09/08/24 10:00 09/08/24 09:56 81 MG Atorvastatin Calcium 40 mg DAILY PO 09/08/24 10:00 09/08/24 09:56 40 MG Heparin Sodium/ Dextrose 250 ml @ 10 mls/hr Q24H IV 09/08/24 09:30 Examination General examination- awake, alert, oriented, conversant HEENT- PEERLA, no acute nasal discharge Cardiovascular- S1-S2 audible, rate and rhythm regular, systolic murmur murmur+ Respiratory- CTAB, no wheeze or rhonchi Gastrointestinal-nontender, bowel sound+. Nondistended Musculoskeletal-no acute joint swelling or tenderness or redness Lower extremity- leg edema Neurological- 2 x 2 laceration on the back of the head in the scalp, cranial nerves intact, no acute dysarthria or dysphagia Psychiatry- denies depression or SI or HI Skin- no acute rash or purpura laboratory and microbiology Laboratory Tests 09/08/24 09:41 09/07/24 20:03 Test 09/07/24 20:03 Range/Units Serum Glucose 79 74-106 mg/dL Problem List/Assessment/Plan Problem List/Assessment/Plan #Traumatic head injury, S/P mechanical fall -There is a 2x2cm laceration in the superior occipital region with no active bleeding at this time -Full neurologic exam was unremarkable -CT scan of the head came back showing no evidence of intracranial bleeding or acute stroke at this time -cervical spine CT showed no fractures or dislocation at this time. -Pain medication -Monitor neurologic status #NSTEMI likely type 1 -Patient completely asymptomatic denied chest pain/discomfort or SOB -Trops significantly elevated 518> 975> 2105> 7987> 8039> 7968 -EKG showed sinus tachycardia with non specific t wave inversion in III, AVF and V6. No ST segment depression or elevation -BNP was 34 -Patient was loaded in aspirin -pending echo 2D report -cardiology recommended for left heart catheterization today at the earliest availability -continue pain as prescribed #UTI -U/A suggesting UTI -continue ceftriaxone 1 g IV daily -pending urine CS Primary hypertension -monitor BP # prediabetes, HGB A1c 5.9 -carbohydrate controlled diet #Dyslipidemia -continue atorvastatin 40mg daily # restless leg syndrome -Neupro Harjeet as per Cardiology recommendation #BPH -Enlarged prostate on CT, patient did not reported any symptoms at this time Goals of care/advance care planning; FULL CODE; discussed with the patient >15 minutes PUD prophylaxis: Famotidine DVT prophylaxis: Plan discussed with Dr. Cummins , nursing staff, patient Total time spent on patient evaluation, chart review, assessment and plan, discussion discussion >41 minutes Plan discussed with: Patient Plan discussed with: Patient (RN), Other My Orders My Orders Orders - RUI TOBIAS RESIDENT Procedure Category Date Status Time Platelet Monitoring CONNIE 09/08/24 In Process 09:26 Discontinue All Im CONNIE 09/08/24 In Process Injections 09:26 PTPTT LAB 09/08/24 In Process 09:26 Heparin Drip/D5w PHA 09/08/24 In Process 100units/Ml 09:30 RUI TOBIAS RESIDENT Sep 08, 2024 10:07
[2024-09-08 12:18] LABS: Cholesterol 128 mg/dL (< 200); LDL Cholesterol 72 mg/dL (< 100)
[2024-09-08 12:25] LABS: HDL Cholesterol 32 mg/dL (40-59); Triglycerides 202 mg/dL (< 150)
--- NOTE | 2024-09-08 12:30 | ECG ---
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
[2024-09-08 13:15] LABS: Amphetamine Screen, Urine Neg (NEGATIVE)
[2024-09-08 13:30] LABS: Barbiturate Scree,Urine Neg (NEGATIVE); Benzodiazephine Screen, Urine Neg (NEGATIVE); Cocaine Screen, Urine Neg (NEGATIVE); Opiate Scree,Urine Neg (NEGATIVE); Phencyclidine Screen, Urine Neg (NEGATIVE)
[2024-09-08 13:36] LABS: Cannabinoid Screen, Urine Neg (NEGATIVE)
[2024-09-08] MEDS: ANGIOMAX 250 MG VIAL IV ONE (15:03)
[2024-09-08] MEDS: VERAPAMIL 2.5MG/ML INJ 2ML VIAL IV ONE (15:04)
[2024-09-08] MEDS: MIDAZOLAM HCL 2MG/2ML 2ml VIAL (1mg/ml) ONE (15:04)
[2024-09-08] MEDS: fentaNYL CITRATE 100 MCG/2 ML VL ONE (15:04)
[2024-09-08] MEDS: IODIXANOL 320MG/ML 100ML BTL IV ONE ×2 (15:05→16:07)
[2024-09-08] MEDS: LIDOCAINE 2%HCL (LOCAL ANESTH.) INJ 20ML MDV ONE ×2 (15:05→15:50)
--- NOTE | 2024-09-08 15:21 | DVHSR ---
APPROVED REPORT EXAM: Two-dimensional and M-mode echocardiogram with Doppler and color Doppler. Blood Pressure: 133/70 mmHg INDICATION NSTEMI r/o ACS RISK FACTORS Height: 69, Weight: 210 DIMENSIONS LVDd4.9 (3.8-5.7cm)LA (2D)4.8 (1.9-4.0cm)Aortic Root4.2 (2.0-3.7cm) LVDs3.3 (2.5-4.0cm)LA (MM) (1.9-4.0cm)Aortic Cusp Exc1.3 (1.5-2.0cm) EF (%) 60.0 (55-70%)Rt. Atrium4.3 (1.9-4.0cm)Asc. Aorta cm IVSd1.2 (0.7-1.1cm)RV (D) (1.8-2.4cm) PWd1.2 (0.7-1.1cm) Mitral Valve MitralMitral Stenosis E wave1.35m/sMV Mean GR.5mmHg A wave1.34m/sMV Peak GR.111mmHg E/A ratio1.02D MVAcm2 DECEL [id number] 1/2 Xpuc633ps IVRTmsDop MVA2.19cm2 Aortic Valve Aortic ValveAortic Stenosis V11.38m/Freda Mean GR.36mmHg V24.22m/Freda Peak GR.71mmHg LVOT Diameter2.1 (1.8-2.4cm)Doppler AVA1.13cm2 AI P 1/2 Wuhn834.01ms Pulmonic Valve V20.94m/s Tricuspid Valve TR Velocity2.08m/s [id number] Other Information Technically limited study due to body habitus. Conclusion lvef 60% by visual estimate mild to moderate LVH moderate to severe , mean gradient of 37 mmhg, mild aortic regurg mild mac
[2024-09-08 15:53] LABS: Folate (Folic Acid) 25.91 ng/mL (>5.38)
[2024-09-08] MEDS: HEPARIN 1,000 UNITS/ml 1ML VIAL ONE (16:05)
[2024-09-08] MEDS: EPTIFIBATIDE DRIP(0.75MG/ML) 100 ML IV ONE (16:36)
[2024-09-08] MEDS: EPTIFIBATIDE INJ (2MG/ML) 10ML VIAL IV ONE (16:37)
[2024-09-08] MEDS: NITROGLYCERIN 0.4MG/DOSE SPRAY 4.9GM ONE (16:37)
[2024-09-08] MEDS: TICAGRELOR 90 MG TAB ONE (16:37)
--- NOTE | 2024-09-08 18:40 | DVHOP2 ---
Operative Report Operative Report CARDIAC EARLY CHILDHOOD EDUCATION INSTRUCTOR PROCEDURE REPORT [place], [place] Date of Service: 09/08/24 Fermenter Champagne: Rose Marie Alas MD PROCEDURES PERFORMED: Coronary angiogram, left heart catheterization, conscious sedation administration and supervision, less than 15 minutes; fluoroscopy use and interpretation. conscious sedation 15-30 mins, 31 -45 mins, PTCA 1 vessel, PCI 1 vessel acute [place] intervention PREOPERATIVE DIAGNOSES: NSTEMI, moderate to severe POSTOP DIAGNOSIS: severe cad DESCRIPTION OF PROCEDURE: The patient or appropriate family signed informed c onsent understanding the risks, benefits and alternatives of the procedure, they wished to proceed. The patient was brought to the cardiac malthouse laborer in n.p.o. state. The patient was prepped in a sterile fashion. Sedation was used per cardiac cath protocol. I administered 2 mL of 2% lidocaine to the right wrist. With an antegrade front wall puncture. I cannulated the right radial artery and placed a 6-Upper Sorbian Glidesheath slender. Next, an intra-arterial spasmolytic was administered. Next, a - 6French Kinderhook catheter, JR4, andXB4 guide and were used for coronary angiogram and LVEDP measurement and pressure pullback. At the completion of procedure, all guides and wires were removed, and there were no immediate complications. FINDINGS: RCA: small non dominant vessel off the right sinus of Valsalva, there is no severe flow limiting stenosis. LEFT MAIN: large size left main, it bifurcates into LAD and circumflex. no severe stenosis. CIRCUMFLEX: Moderate caliber vessel coming off the left main. prox CX has tortuous vessel giving of high take off OM1. OM1 bifurcates and is free of severe disease. mid CX has a ruptured 95% plaque with thrombus noted. IT gives off OM2 and OM3. OM3 has inferior branch 90% stenosis but small branch. distal CX gives off LPL branch with diffuse disesae. LAD: LAD is a moderate caliber vessel coming of the left main. mid LAD has 40% stenosis, distal LAD has 50-60% intermediate stenosis. apical LAD wraps around apex INTERVENTION: We decided to proceed with coronary intervention. I started with a 6F ___XB4 _ Guide to intubate the _LM _. IV heparin 7000 U given as pt came down on heparin gtt . Following this, I decided to wire using an .014 BMW across the culprit lesion with ease. At this time, we performed balloon angioplasty with a 3.0 x 15 mm balloon up to 12 atms ATMS over __15__ seconds with _2__ number of inflations and I also used a 3.0 NC balloon up to 16 atms over 15 seconds to the mid CX . Following this, I decided to place 2 stents. Distally I used 3.5 x30 mm onyx____ stent inflated up to __18___ ATMS over 15 seconds with two separate inflations. Then proximally with little overlap I placed a 3.5 x 12 mm SETH up to 18 atms with 2 inflations each 15 seconds. Following this, the stent balloon removed and angio performed showing 0% residual stenosis. SOHAN pre/post: 3./3 CONCLUSIONS: 1. successful PCI to a 95% dominant CX ruptured plaque and SETH placed 2. will need TAVR eval at [facility] PLAN: Aggressive risk factor modification and medical management for the patient. DAPT x 1 year uninterrupted ROSE MARIE ALAS MD Sep 08, 2024 18:40
[2024-09-08] MEDS ORDERED: LATA0.008 EACHEYE (21:32)
[2024-09-08] MEDS ORDERED: ROPI2TAB27 PO (21:32)
[2024-09-08] MEDS ORDERED: ATOR20TA50 PO (21:32)
[2024-09-08] MEDS ORDERED: SILD50TA PO (21:32)
[2024-09-08] MEDS ORDERED: [UNRECOGNIZED DRUG - CODE] IJ (21:32)
[2024-09-08] MEDS ORDERED: ROTI8DIS TD (21:32)
[2024-09-08] MEDS ORDERED: LISI20TA56 PO (21:32)
[2024-09-08] MEDS ORDERED: [UNRECOGNIZED DRUG - CODE] EX (21:32)
[2024-09-08] MEDS ORDERED: METO25TA5 PO (21:32)
[2024-09-08] MEDS ORDERED: MODA100T52 PO (21:32)
[2024-09-08] MEDS ORDERED: DONE1TAB88 PO (21:32)
[2024-09-08] MEDS ORDERED: VENL1TAB97 PO (21:32)
[2024-09-08] MEDS ORDERED: MIDO2.5T15 PO (21:32)
[2024-09-08] MEDS ORDERED: KETO2CRE4 TOP (21:32)
[2024-09-08] MEDS ORDERED: EPIN0.1I11 IJ (21:34)
[2024-09-08] MEDS: TICAGRELOR 90 MG TAB PO SCH (21:58)
[2024-09-08] MEDS: cefTRIAXone 1GM/50ML D5W 50 ML IV SCH (23:34)
[2024-09-09 02:04] VITALS: BP 145/83; PULSE 81; RESP 18; TEMP 97.6; O2SAT 96
[2024-09-09 05:00] VITALS: BP 121/68; PULSE 68; RESP 18; TEMP 97.8; O2SAT 95
[2024-09-09 06:14] LABS: Basophils # (auto) 0 10 ^3/uL (0-0.2); Lymphocytes # (auto) 1.4 10 ^3/uL (0.4-5.4); Nucleated Red Blood Cells % 0.1 %
[2024-09-09 06:17] LABS: Basophils % (auto) 0.7 % (0.0-2.0); Eosinophils # (auto) 0.2 10 ^3/uL (0-0.8); Hemoglobin 14.7 g/dL (13.5-17.5); Lymphocytes % (auto) 20.2 % (10.0-50.0); Mean Corpuscular Hemoglobin 35.4 pg (28.0-32.0); Mean Corpuscular Volume 101.1 fL (80.0-100.0); Monocytes % (auto) 15.6 % (0.0-12.0); Neutrophils % (auto) 60.5 % (37.0-80.0); Platelet Count (auto) 152 10^3/uL (140-450); Red Blood Cells 4.16 10^6/uL (4.5-5.90); Red Cell Distribution Width 12.7 % (11.8-14.3); White Blood Cell 6.7 10^3/uL (4.4-10.8)
[2024-09-09 06:19] LABS: Potassium 3.6 mmol/L (3.5-5.1); Sodium 139 mmol/L (136-145)
[2024-09-09 06:20] LABS: Anion Gap 9 (5-15); Carbon Dioxide 22 mmol/L (20-31)
[2024-09-09 06:21] LABS: Calcium 8.9 mg/dL (8.7-10.4)
[2024-09-09 06:25] LABS: Glucose 103 mg/dL (74-106)
[2024-09-09 06:26] LABS: BUN/Creatinine Ratio 11.1 (10.0-20.0); Blood Urea Nitrogen 10 mg/dL (9-23); Magnesium 2.2 mg/dL (1.6-2.6)
[2024-09-09 06:29] LABS: Chloride 108 mmol/L (98-107)
[2024-09-09 08:00] VITALS: PULSE 68; PULSE 82; RESP 20; O2SAT 97
[2024-09-09 09:00] VITALS: BP 117/67; PULSE 82; RESP 20; TEMP 97.8; O2SAT 97
[2024-09-09] MEDS: ASPirin 81 mg TAB PO SCH (09:03)
[2024-09-09] MEDS: LORazepam 2MG/ML-1ML VIAL IV ONE (09:04)
[2024-09-09] MEDS: ATORVASTATIN 20 MG TAB PO SCH (09:04)
[2024-09-09] MEDS: ROTIGOTINE TD SCH (10:50)
[2024-09-09] MEDS ORDERED: ROSU20TA14 PO (12:47)
[2024-09-09] MEDS ORDERED: FAMO20TA10 PO (12:47)
[2024-09-09] MEDS ORDERED: ASPI-498 OR (12:47)
[2024-09-09] MEDS ORDERED: NITR-87 PO (12:47)
[2024-09-09] MEDS ORDERED: TICA90TA PO (12:47)
[2024-09-09 13:00] VITALS: BP 131/90; PULSE 64; RESP 20; TEMP 97.5; O2SAT 98
--- NOTE | 2024-09-09 13:09 | DVHPN2 ---
Progress Note Date Seen: Sep 09, 2024 Medical Necessity Reason Pt with a Central, PICC or Fol: No (RN) Subjective Patient reports: Feels better Other Systems: pt very sleepy falling asleep during meeting :i need my restless legs medicine Objective vital signs Vital Sign Date Time Temp Pulse Resp B/P (MAP) Pulse Ox O2 Delivery O2 Flow Rate FiO2 09/09/24 13:00 97.5 64 20 131/90 (104) 98 97.5 09/09/24 08:00 Room Air* 0 21 Total Intake and Output 09/08/24 09/08/24 09/09/24 15:00 23:00 07:00 Intake Total 400 ml 375 ml 400 ml Output Total 450 ml 250 ml Balance 400 ml -75 ml 150 ml medications Current Medications Medications Dose Ordered Sig/Jomar Route Start Time Stop Time Status Last Admin Dose Admin Acetaminophen 650 mg Q6HP PRN PO 09/08/24 00:45 Ceftriaxone Sodium 50 ml @ 100 mls/hr DAILY@0000 IV 09/09/24 00:00 09/08/24 23:34 100 MLS/HR Ticagrelor 90 mg BID PO 09/08/24 22:00 09/09/24 09:03 90 MG Aspirin 81 mg DAILY PO 09/09/24 10:00 09/09/24 09:03 81 MG Atorvastatin Calcium 40 mg DAILY PO 09/09/24 10:00 09/09/24 09:04 40 MG Patient Own Medication 1 DAILY TD 09/09/24 10:15 09/09/24 10:50 1 Examination: GENERAL:Abnormal, HEENT:Abnormal, NECK:Abnormal, LUNGS:Abnormal, CVS:Abnormal, ABDOMEN:Abnormal laboratory and microbiology Laboratory Tests 09/09/24 05:59 Test 09/09/24 05:59 Range/Units Serum Glucose 103 74-106 mg/dL Microbiology Date/Time Source Procedure Growth Status 09/07/24 21:11 Voided Urine Urine Culture - Preliminary Resulted Problem List/Assessment/Plan Problem List/Assessment/Plan nstemi moderate to severe restless legs htn hl s/p pci cont dapt fu with his cards for tavr eval in 1 week cont home med statin Plan discussed with: Patient My Orders My Orders Orders - ROSE MARIE ALAS MD Procedure Category Date Status Time Cl Left Heart Cath CL 09/08/24 Taken 14:58 Transfer Orders XFER 09/08/24 Transmitted 16:36 Post Cath Vital Signs CONNIE 09/08/24 In Process Q 15min 16:33 Post Cath Activity CONNIE 09/08/24 In Process Protocol 16:33 Communication Order ORDERS 09/08/24 Transmitted 17:02 Ticagrelor (Brilinta) PHA 09/08/24 In Process 22:00 Patients Own PHA 09/09/24 In Process Medication 10:15 Date of Service: Sep 09, 2024 Billing Provider: ROSE MARIE ALAS MD Common Visit Codes: NOT BILLABLE ROSE MARIE ALAS MD Sep 09, 2024 13:08
[2024-09-09 13:34] VITALS: BP 131/90; PULSE 64; RESP 20; TEMP 97.5; O2SAT 98
--- NOTE | 2024-09-09 18:56 | DVHDSRES ---
Discharge Summary Date of Admission Resident Creating Document: RUI TOBIAS Sep 08, 2024 at 00:35 Date of Discharge: Sep 09, 2024 Admitting Diagnosis fall with With a head injury Labs/Diagnostic Data: Laboratory Results Test 09/09/24 05:59 09/08/24 11:25 09/08/24 09:41 09/08/24 05:30 White Blood Count 6.7 10^3/uL (4.4-10.8) Red Blood Count 4.16 10^6/uL (4.5-5.90) Hemoglobin 14.7 g/dL (13.5-17.5) Hematocrit 42.0 % (41.0-53.0) Mean Corpuscular Volume 101.1 fL (80.0-100.0) Mean Corpuscular Hemoglobin 35.4 pg (28.0-32.0) Mean Corpuscular Hemoglobin Concent 35.0 g/dL (32.0-36.0) Red Cell Distribution Width 12.7 % (11.8-14.3) Platelet Count 152 10^3/uL (140-450) Mean Platelet Volume 7.3 fL (6.9-10.8) Neutrophils (%) (Auto) 60.5 % (37.0-80.0) Lymphocytes (%) (Auto) 20.2 % (10.0-50.0) Monocytes (%) (Auto) 15.6 % (0.0-12.0) Eosinophils (%) (Auto) 3.0 % (0.0-7.0) Basophils (%) (Auto) 0.7 % (0.0-2.0) Neutrophils # (Auto) 4.0 10 ^3/uL (1.6-8.6) Lymphocytes # (Auto) 1.4 10 ^3/uL (0.4-5.4) Monocytes # (Auto) 1.0 10 ^3/uL (0-1.3) Eosinophils # (Auto) 0.2 10 ^3/uL (0-0.8) Basophils # (Auto) 0 10 ^3/uL (0-0.2) Nucleated Red Blood Cells 0.1 % Sodium Level 139 mmol/L (136-145) Potassium Level 3.6 mmol/L (3.5-5.1) Chloride Level 108 mmol/L (98-107) Carbon Dioxide Level 22 mmol/L (20-31) Anion Gap 9 (5-15) Blood Urea Nitrogen 10 mg/dL (9-23) Creatinine 0.90 mg/dL (0.700-1.30) Glomerular Filtration Rate Calc 89 mL/min (>90) BUN/Creatinine Ratio 11.1 (10.0-20.0) Serum Glucose 103 mg/dL (74-106) Calcium Level 8.9 mg/dL (8.7-10.4) Magnesium Level 2.2 mg/dL (1.6-2.6) Troponin I High Sensitivity 7968 ng/L (</=54) Prothrombin Time 11.2 sec (9.3-11.8) Prothrombin Time INR 1.06 (0.9-1.15) Activated Partial Thromboplast Time 25.1 SEC (24.5-34.5) Hemoglobin A1c 5.9 % A1C (<5.7) Triglycerides Level 202 mg/dL (< 150) Cholesterol Level 128 mg/dL (< 200) LDL Cholesterol 72 mg/dL (< 100) HDL Cholesterol 32 mg/dL (40-59) Vitamin B12 Level 339 pg/mL (211-911) Folic Acid 25.91 ng/mL (>5.38) Thyroid Stimulating Hormone (TSH) 1.51 uIU/mL (0.55-4.78) Test 09/07/24 22:55 09/07/24 21:11 09/07/24 20:03 Creatine Kinase 367 U/L (46-171) Urine Color Light-yellow (Yellow) Urine Clarity Clear (Clear) Urine pH 5.0 (5.0-9.0) Urine Specific [place] 1.021 (1.001-1.035) Urine Protein Trace (Negative) Urine Ketones Negative (Negative) Urine Blood Trace /uL (Negative) Urine Nitrite Negative (Negative) Urine Bilirubin Negative (Negative) Urine Urobilinogen Normal mg/dL (Negative) Urine Leukocyte Esterase 3+ /uL (Negative) Urine RBC 1 /hpf (0 - 3) Urine Microscopic WBC 34 /HPF (0-3) Urine Squamous Epithelial Cells Few /hpf (<5) Urine Bacteria None seen /hpf (None Seen) Urine Hyaline Casts Few /lpf (0 - 2) Urine Mucus Few (None Seen) Urine Glucose Normal mg/dL (Normal) Urine Opiates Screen Neg (NEGATIVE) Urine Fentanyl Screen Neg (NEGATIVE) Urine Barbiturates Screen Neg (NEGATIVE) Urine Phencyclidine Screen Neg (NEGATIVE) Urine Amphetamines Screen Neg (NEGATIVE) Urine Benzodiazepines Screen Neg (NEGATIVE) Urine Cocaine Screen Neg (NEGATIVE) Urine Cannabinoids Screen Neg (NEGATIVE) B-Type Natriuretic Peptide 34.66 pg/mL (0-100) Other Laboratory Tests 09/09/24 05:59 Brief Hx & Hospital Course: [id number]-old male with past medical history of hypertension, dyslipidemia, depression, holosystolic heart murmur, depression, multifocal motor neuropathy, on IVIG intravenous immunoglobulin every a 10 week, restless leg syndrome on Neupro who presented to the ED with chief complaint of head injury after mechanical fall. Patient reported that he was working on his yard for a long time collecting leaves, the patient states that after some time he started feeling minimally dizzy, unsteady, fatigued and with low energy. Patient stated that he try to hold on the fence for a while, afterwards he started walking and he felt his knees and lower extremities did not respond and fall backwards hitting his head at the occipital region. The patient states that he never lost consciousness and that he tried to stand up and fall down once again hitting again his head during his fall. The patient states he never felt that he was loosing consciousness and denies blurry vision, hot sensation or any other symptoms. Patient denied any chest pain, shortness of breath, palpitation, dysarthria, dysuria, acute joint pain or swelling. On admission initial labs showed a WBC of 10.2, hemoglobin of 16.2 troponins were significantly elevated at 975 and peaked at 2105. EKG was reviewed which showed sinus tachycardia with nonspecific T-wave inversion in leads III, AVF and V6. Patient's troponin I was trending 518> 975> 2105> 7987> 8039> 7968. UDS negative, triglyceride 202, TSH 1.51. Initial head CT without contrast showed no evidence of intracranial bleeding or acute stroke. Chest x-ray was grossly unremarkable and cervical spine CT showed no fractures or dislocations. A CT scan of the abdomen and pelvis with hepatic steatosis and enlarged prostate. The patient denies chest pain, shortness of breath, fever/chills or any other symptoms at this time. Patient will be admitted to telemetry for further assessment and management. Hospital course-patient came with the hospital status post fall. Patient had his injury but revealed sinus tachycardia with nonspecific T-wave inversion in leads III, AVF and V6. Patient's troponin I was trending 518> 975> 2105> 7987> 8039> 7968. UDS negative, triglyceride 202, TSH 1.51. Initial head CT without contrast showed no evidence of intracranial bleeding or acute stroke. Chest x- ray was grossly unremarkable and cervical spine CT showed no fractures or dislocations. A CT scan of the abdomen and pelvis with hepatic steatosis and enlarged prostate. Patient had left heart catheterization on 09/08/2024. Patient had successful PCI to a 95% dominant CX ruptured plaque and SETH placed. Patient was advised to follow up with the primary care physician in 1 week and of the cardiology due to 3 weeks for further evaluation and care. Patient was counseled about the importance of med compliance. Patient was advised to follow up with the [facility] for evaluation of TAVR. Patient was discharged with dual antiplatelet drugs aspirin and Brilinta. Patient was advised to continue with the dual antiplatelet for 12 months. Patient's meds were sent to the pharmacy electronically. Patient was hemodynamically stable and vitals stable at discharge. Diagnosis- Acute coronary syndrome-NSTEMI type 1 Status post PTCA-DESX1 SIRS with the End organ damage Acute complicated cystitis Ufip-fi-givapomt left ventricular hypertrophy Lhlmtshy-gk-lrcxwc aortic stenosis Mild aortic regurgitation Traumatic head injury, S/P mechanical fall, laceration of the back of the head Primary hypertension Mild acute rhabdomyolysis Dyslipidemia Restless leg syndrome BPH Discharge plan -continue aspirin 81 mg p.o. daily for 12 months Continue Brilinta 90 mg by mouth times a day for 12 months Continue Crestor 20 mg at night Macrobid 100 mg by mouth 2 times a day for 5 days Famotidine 20 mg by mouth 2 times a day Resume other home medications as recommended by primary care physician Patient was advised to follow up with the primary care physician in 1 week Advised to follow up with the insect control inspector in 2-3 weeks further evaluation of care of cardiac disease Patient was counseled about the importance of med compliance Patient was advised to follow up in [facility] for evaluation of TAVR Operations or Procedures [address] [address] Ph: [phone] DIAGNOSTIC IMAGING Diagnostic Imaging Report : [id number] Signed PATIENT: GUILHERME LAWLER ACCT: [id number] UNIT: [id number] : 04/24/1946 LOC: ER ROOM / BED: / AGE / SEX: 78 / M ADM STATUS: REG ER SERVICE 39 ORDERING PHYSICIAN: SHERLYN PANCHAL MD PROCEDURE(s): ABPL - CT AB PEL WO CON-NO ORAL OR IV REASON: FALL // BLOOD IN URINE ORDER NUMBER(s): [id number], ACCESSION NUMBER(s): [id number] Exam: CT CT AB PEL WO CON-NO ORAL OR IV History: FALL // BLOOD IN URINE Comparison Study: None available at time of dictation. TECHNIQUE: Multidetector CT of the abdomen was performed from lung bases to pubic symphysis. Imaging was performed without IV contrast. Axial, coronal and sagittal multiplanar reformats were obtained from the axial data set by the technologist. Radiation Dose Information: CT Dose: CTDI volume is 17.45 mGy. Dose-length product is 2573.08 mGy*cm FINDINGS: Evaluation of solid organs is limited due to lack of intravenous contrast use. Findings: Lung Bases: No acute or significant lung base finding. Normal heart size. No pleural or pericardial effusion. Liver: Hepatic steatosis Gallbladder and Biliary Tree: Unremarkable Spleen: Unremarkable Pancreas: The pancreas is grossly normal in appearance. Adrenal Glands: Unremarkable Kidneys: No nephrolithiasis or hydronephrosis. Prostate measures 4.2 x 3.9 cm. Bladder: Grossly unremarkable for degree of distention. Bowel: The stomach is grossly normal in appearance. Small bowel and colon are normal in caliber and distribution. The appendix is not visualized; however, no secondary findings of acute appendicitis identified. Ascites: Absent Lymphadenopathy: No mesenteric, retroperitoneal or periportal lymphadenopathy. Abdominal Wall and Mesentery: 4-5 cm fat filled right inguinal hernia. Vasculature: The visualized abdominal aorta is normal in size and caliber. Evaluation of abdominal and pelvic vessels is limited due to lack of intravenous contrast. Pelvic Organs: Unremarkable Musculoskeletal: No aggressive focal bony lesions, acute fractures or dislocation. Soft tissues: Unremarkable IMPRESSION: 1. Hepatic steatosis. 2. No nephrolithiasis or hydronephrosis. 3. Prostate measures 4.2 by 3.9 cm HS:Y Radiation optimization: All CT scans at this facility use at least one of these dose optimization techniques: automated exposure control mA and/or kV adjustment per patient size (includes targeted exams where dose is matched to clinical indication) or iterative reconstruction. ATED BY: DONALD RUTLEDGE Jr., DO DICTATED DATE/TIME: 09/07/242118 SIGNED BY: DONALD RUTLEDGE Jr., DO SIGNED DATE/TIME: 09/07/242118 CC: [place] [id number] Ph: [phone] DIAGNOSTIC IMAGING Diagnostic Imaging Report : [id number] Signed PATIENT: GUILHERME LAWLER ACCT: [id number] UNIT: [id number] : 04/24/1946 LOC: ER ROOM / BED: / AGE / SEX: 78 / M ADM STATUS: REG ER SERVICE 38 ORDERING PHYSICIAN: SHERLYN PANCHAL MD PROCEDURE(s): HWOCT - HEAD WITHOUT CONTRAST REASON: trauma ORDER NUMBER(s): [id number], ACCESSION NUMBER(s): [id number] CT HEAD WITHOUT CONTRAST INDICATION: trauma COMPARISON: None TECHNIQUE: CT of the head without intravenous contrast. RADIATION DOSE: CTDIvol: mGy, DLP: mGy*cm FINDINGS: There is no evidence of intracranial hemorrhage, large infarct, extra-axial collection, mass effect, midline shift, herniation or hydrocephalus. The ventricles, sulci and cisterns are normal. Mild chronic white matter microvascular ischemic changes. Visualized paranasal sinuses and mastoid air cells are clear. Soft tissues and osseous structures are unremarkable. IMPRESSION: No acute intracranial abnormality identified. Mild chronic microvascular ischemic changes. ATED BY: SANTY MARIN MD DICTATED DATE/TIME: 09/07/242100 SIGNED BY: SANTY MARIN MD SIGNED DATE/TIME: 09/07/242100 CC: [place] [id number] Ph: [phone] DIAGNOSTIC IMAGING Diagnostic Imaging Report : [id number] Signed PATIENT: GUILHERME LAWLER ACCT: [id number] UNIT: [id number] : 04/24/1946 LOC: ER ROOM / BED: / AGE / SEX: 78 / M ADM STATUS: REG ER SERVICE 38 ORDERING PHYSICIAN: SHERLYN PANCHAL MD PROCEDURE(s): CXRP - CHEST PORTABLE REASON: abn ekg ORDER NUMBER(s): [id number], ACCESSION NUMBER(s): [id number] CHEST RADIOGRAPH Indication: abn ekg Technique: Single frontal view of the chest was obtained COMPARISON: None FINDINGS: Lines and Tubes: None Lungs: Clear Pleura: No effusion. No pneumothorax. Cardiomediastinal contours: Within normal limits Bones: Unremarkable IMPRESSION: No acute disease. ATED BY: SANTY MARIN MD DICTATED DATE/TIME: 09/07/242105 SIGNED BY: SANTY MARIN MD SIGNED DATE/TIME: 09/07/242105 CC: [address] [place] [address] Ph: [phone] DIAGNOSTIC IMAGING Diagnostic Imaging Report : [id number] Signed PATIENT: GUILHERME LAWLER ACCT: [id number] UNIT: [id number] : 04/24/1946 LOC: ER ROOM / BED: / AGE / SEX: 78 / M ADM STATUS: REG ER SERVICE 38 ORDERING PHYSICIAN: SHERLYN PANCHAL MD PROCEDURE(s): CS2 - CERVICAL WITHOUT CONTRAST REASON: trauma ORDER NUMBER(s): [id number], ACCESSION NUMBER(s): [id number] EXAM: CT CERVICAL WITHOUT CONTRAST HISTORY: trauma COMPARISON: None CTDIvol [CTDIvol] mGy, DLP [DLP] mGy*cm. TECHNIQUE: Multiple axial CT images of the spine were obtained using bone algorithm. Axial and coronal reformatting was done. Bone and soft tissue windows were reviewed. FINDINGS: Straightening of the normal cervical lordosis. No listhesis. No evidence of cervical spine fracture or dislocation. Visualized paraspinal soft tissues are grossly unremarkable. Multilevel cervical spondylosis with at most mild spinal canal narrowing. IMPRESSION: No evidence of cervical spine fracture or dislocation. ATED BY: SANTY MARIN MD DICTATED DATE/TIME: 09/07/242103 SIGNED BY: SANTY MARIN MD SIGNED DATE/TIME: 09/07/242103 CC: Condition at Discharge: Stable Final Diagnosis/Problems List Acute coronary syndrome-NSTEMI type 1 Status post PTCA-DESX1 SIRS with the End organ damage Acute complicated cystitis Sjwy-sh-cnlgwvsy left ventricular hypertrophy Rbimwvga-ac-cclxmi aortic stenosis Mild aortic regurgitation Mild acute rhabdomyolysis Traumatic head injury, S/P mechanical fall, laceration of the back of the head Primary hypertension Dyslipidemia Restless leg syndrome BPH Discharge Disposition: Home Discharge Instruct/Medications Diet: Cardiac 2g Na,low cholest Activity: No Restrictions, As Tolerated Medications: continue aspirin 81 mg p.o. daily for 12 months Continue Brilinta 90 mg by mouth times a day for 12 months Continue Crestor 20 mg at night Macrobid 100 mg by mouth 2 times a day for 5 days Famotidine 20 mg by mouth 2 times a day Resume other home medications as recommended by primary care physician Patient was advised to follow up with the primary care physician in 1 week Advised to follow up with the insect control inspector in 2-3 weeks further evaluation of care of cardiac disease Patient was counseled about the importance of med compliance Patient was advised to follow up in [facility] for evaluation of TAVR Discharge Statement: "Patient was advised to return to the ER or call 911 if any headaches, dizziness, shortness of breath, chest pain, abdominal pain, bleeding, fevers, or worsening of medical condition. Patient was counseled about treatment plan, medications, possible side effects, patientverbalized understanding. All questions were answered to the best of my ability. This discharge took greater then 30 minutes in planning, reviewing documentation, counseling the patient, and discussing with other team members." ASSESSMENT ASSESSMENT Assessment History of mechanical fall Coronary artery disease NSTEMI type 1 status post SETH x2 Moderate to severe aortic stenosis Tinm-qb-ibdquiaj left ventricular hypertrophy Acute complete BC studies with end-organ damage Mild acute rhabdomyolysis RUI TOBIAS RESIDENT Sep 09, 2024 18:56
== END 2024-09-09 16:00 | disposition home or self-care (01) | DRG 321 ==
LOC: ER 19:15 → EDBD 19:15 → OVERFLOW 09-08 00:35 → EAST 09-08 18:38 → TELE-EAST 09-08 18:47
PROVIDERS: ADMIT Student in an Organized Health Care Education/Training Program; ATTEND Student in an Organized Health Care Education/Training Program
PROC: 027035Z Dilation of Coronary Artery, One Artery with Two Drug-eluting Intraluminal Devices, Percutaneous Approach (ICD-10-PCS; principal; 2024-09-08)
PROC: 4A023N7 Measurement of Cardiac Sampling and Pressure, Left Heart, Percutaneous Approach (ICD-10-PCS; 2024-09-08)
PROC: B211YZZ Fluoroscopy of Multiple Coronary Arteries using Other Contrast (ICD-10-PCS; 2024-09-08)
DX: I21.4 Non-ST elevation (NSTEMI) myocardial infarction (principal); R65.11 Systemic inflammatory response syndrome (SIRS) of non-infectious origin with acute organ dysfunction; M62.82 Rhabdomyolysis; N30.00 Acute cystitis without hematuria; I25.10 Atherosclerotic heart disease of native coronary artery without angina pectoris; E78.5 Hyperlipidemia, unspecified; E66.9 Obesity, unspecified; G25.81 Restless legs syndrome; I10 Essential (primary) hypertension; N40.0 Benign prostatic hyperplasia without lower urinary tract symptoms; S01.01XA Laceration without foreign body of scalp, initial encounter; I35.0 Nonrheumatic aortic (valve) stenosis; I35.1 Nonrheumatic aortic (valve) insufficiency; Z68.34 Body mass index [BMI] 34.0-34.9, adult; Z79.899 Other long term (current) drug therapy; W18.39XA Other fall on same level, initial encounter; Y93.89 Activity, other specified; Y92.89 Other specified places as the place of occurrence of the external cause; Y99.8 Other external cause status
CPT/HCPCS: 36415; 70450; 71045; 72125; 74176; 80048; 80061; 80307; 81001; 82550; 82607; 82746; 83036; 83735; 83880; 84443; 84484; 85025; 85610; 85730; 87086; 87088; 87186; 90471; 90715; 93005; 93306; 96365; 96367; 96376; 99152; 99291; G0378; J2250; Q9967